=== PATIENT | female | born 1990 | race African-American/Black ===

== ENCOUNTER 2023-10-03 19:58 | Emergency (ER) | payer OTHER ==
[2023-10-03 21:15] LABS: CORONAVIRUS COVID-19 NAA POSITIVE (NEGATIVE); STREP A BY PCR NOT DETECTED (NOT DETECT)
== END 2023-10-03 22:16 | disposition home or self-care (01) ==
LOC: FB.ED 19:58
DX: U07.1 COVID-19 (principal); B37.31 Acute candidiasis of vulva and vagina
CPT/HCPCS: 87210; 87651-QW; 99283; U0002